=== PATIENT | female | born 1980 | race Caucasian/White ===

== ENCOUNTER → 2023-04-08 09:47 | Outpatient (CLI) | payer OTHER, SELFPAY ==
--- NOTE | ~2023-04-08 | US_ITS ---
EXAMINATION: US transvaginal DATE: 04/08/2023 10:26 INDICATION: Abnormal uterine bleeding. Comparison:No prior studies for comparison. TECHNIQUE: Multiple transabdominal and endovaginal sonographic images of the pelvis performed. FINDINGS: The uterus measures 7.4 x 4.4 x 5.4 cm. The endometrial complex measures 10 mm. The right ovary measures 2.5 x 1.5 x 1.7 cm and the left ovary measures 3.7 x 2.4 x 2.5 cm. There ar e small follicles in each ovary. Normal doppler signal in both ovaries. There is no free fluid in the pelvis. There are no abnormal masses seen on either side. IMPRESSION: 1. Normal pelvic ultrasound Reviewed, dictated and finalized at location [facility] IMPRESSION: 1. Normal pelvic ultrasound
== END ==
PROVIDERS: PCP Nurse Practitioner; Visit Provider Nurse Practitioner
DX: N93.8 Other specified abnormal uterine and vaginal bleeding (principal)
CPT/HCPCS: 76830